=== PATIENT | female | born 1990 | race African-American/Black ===

== ENCOUNTER 2024-04-02 14:33 | Emergency (ER) | payer MEDICAID | END 2024-04-02 15:45 | disposition home or self-care (01) | LOC: MW.ED 14:33 | DX: O99.891 Other specified diseases and conditions complicating pregnancy (principal); M54.50 Low back pain, unspecified; O23.592 Infection of other part of genital tract in pregnancy, second trimester; N77.1 Vaginitis, vulvitis and vulvovaginitis in diseases classified elsewhere; Z75.8 Other problems related to medical facilities and other health care; Z3A.20 20 weeks gestation of pregnancy | CPT/HCPCS: 99283 ==